=== PATIENT | female | born 1975 | race Asian ===

== ENCOUNTER 2024-03-11 11:24 | Emergency (ER) | payer OTHER ==
[~2024-03-11] VITALS: Ht 149.9 cm; Wt 63.5 kg
[2024-03-11] MEDS ORDERED: FLAS1EAC2 TP (12:59)
[2024-03-11] MEDS ORDERED: FLAS1KIT2 TP (12:59)
[2024-03-11 13:16] VITALS: BP 126/89; TEMP 98.6; O2SAT 98
== END 2024-03-11 13:29 | disposition home or self-care (01) ==
LOC: ER 11:27
DX: S63.592A Other specified sprain of left wrist, initial encounter (principal); I10 Essential (primary) hypertension; E11.9 Type 2 diabetes mellitus without complications; Z79.899 Other long term (current) drug therapy; Z88.0 Allergy status to penicillin; Z88.1 Allergy status to other antibiotic agents; X50.0XXA Overexertion from strenuous movement or load, initial encounter; Y93.89 Activity, other specified; Y92.89 Other specified places as the place of occurrence of the external cause; Y99.8 Other external cause status
CPT/HCPCS: 73110; A4606; A4663